=== PATIENT | female | born 1945 | race Caucasian/White ===

== ENCOUNTER 2021-12-13 10:16 | Emergency (ER) | payer MEDICARE ==
[~2021-12-13] VITALS: Ht 154.9 cm; Wt 73.3 kg
[2021-12-13] MEDS ORDERED: CONTRAST GIVEN. MC PRN (10:45)
--- NOTE | 2021-12-13 10:50 | PHYS DOC ---
Past History Additional Past Medical Histor: tunnel vision; slipped disc; Past Surgical History: Hysterectomy, Tonsillectomy, Tubal ligation Alcohol Use: Rarely General Adult EDM: Chief Complaint: ABSCESS HPI: HPI: Patient is a 76-year-old female presents with abscess near her rectum. Patient states that symptoms started a few days ago. Patient has been taking Tylenol at home which is provided some relief. Pain is worse with sitting. Patient reports that 30 years ago she had a rectal abscess that had to be surgically drained. Patient has noticed some drainage coming from the area along with tenderness. Denies fever. History of chronic back pain. Review of Systems: Review of Systems: ROS At least 10 ROS systems have been reviewed and are negative except as documented in the HPI. General: Negative except as outlined in HPI above. Skin: Negative except as outlined in HPI above. HEENT: Negative except as outlined in HPI above. Neck: Negative except as outlined in HPI above. Respiratory: Negative except as outlined in HPI above.. Cardiovascular: Negative except as outlined in HPI above. Abdomen: Negative except as outlined in HPI above. : Negative except as outlined in HPI above. Back/MSK: Negative except as outlined in HPI above. Neuro: Negative except as outlined in HPI above. Psych: Negative except as outlined in HPI above. Current Medications: Current Meds: Current Medications Medications (Trade) Dose Ordered Sig/Reanna Start Time Stop Time Status Last Admin Dose Admin Info (Do NOT chart on this entry -- for MONITORING) 1 each PRN DAILY PRN 12/13/21 10:45 12/15/21 10:44 Iohexol (Omnipaque 300 Mg/ml) 75 ml 1X ONCE 12/13/21 11:00 12/13/21 11:01 Morphine Sulfate (Morphine 4mg Syringe) 4 mg 1X ONCE 12/13/21 11:00 12/13/21 11:01 Ondansetron HCl (Zofran) 4 mg 1X ONCE 12/13/21 11:00 12/13/21 11:01 Allergies: Allergies: Allergies Coded Allergies Type Severity Reaction Last Updated Verified hydrocodone Allergy Unknown 12/13/21 Yes silver Allergy Unknown 12/13/21 Yes Physical Exam: PE: Constitutional: Well developed, well nourished, no acute distress, non-toxic appearance. [] HENT: bilateral external ears normal, oropharynx moist Eyes: PERRLA, conjunctiva normal, no discharge. [] Neck: Normal range of motion, no tenderness, supple, no stridor. Cardiovascular:Heart rate regular rhythm, no murmur Lungs & Thorax: Bilateral breath sounds clear to auscultation Abdomen: Bowel sounds normal, soft, no tenderness, no masses Skin: Abscess close to anal verge, posterior midline, superficial, tender Current Patient Data: Vital Signs: Vital Signs Date Time Temp Pulse Resp B/P (MAP) Pulse Ox O2 Delivery O2 Flow Rate FiO2 12/13/21 10:28 95.0 82 18 145/80 (101) 95 Room Air EKG: EKG: [] Radiology/Procedures: Radiology/Procedures: []CT abdomen pelvis with contrast dated 12/13/2021. COMPARISON: None. INDICATION: Abdominal pain. Possible abscess. TECHNIQUE: Contiguous axial imaging the abdomen pelvis performed after the administration of 75 cc Isovue-370. One or more of the following individualized dose reduction techniques were utilized for this examination: 1. Automated exposure control 2. Adjustment of the mA and/or kV according to patient size 3. Use of iterative reconstruction technique. FINDINGS: Limited images of lung bases are clear. Heart size is upper limits of normal. No pleural or pericardial effusion. Solid abdominal viscera not well evaluated in the absence of contrast material. Diffuse low-density liver suggesting mild fatty infiltration. No biliary ductal dilatation. Gallbladder unremarkable. Spleen is normal in size. Pancreas, adrenal glands and kidneys are unremarkable. No hydronephrosis. Unopacified GI tract normal in caliber and contour. No bowel wall thickening. The appendix is normal in caliber. There are scattered diverticula throughout the colon. No paracolonic inflammatory changes. No ascites or lymphadenopathy. Abdominal aorta normal in caliber. Images of pelvis show nondistended urinary bladder. Uterus is surgically absent. No free pelvic fluid or pelvic lymphadenopathy. There is a borderline enlarged external iliac chain lymph node on the right that measures 11 mm short axis, nonspecific. Bone window show no acute findings. There is mild multilevel lumbar spondylosis. Mild degenerative change at the bilateral hip joint. There is a distended iliopsoas bursa on the right. IMPRESSION: 1. No acute abnormality of abdomen or pelvis. Normal appendix. 2. Diverticulosis with no evidence of acute diverticulitis. 3. Mild fatty infiltration of the liver. 4. Mildly distended iliopsoas bursa on the right. Electronically signed by: Hugh Pham MD (12/13/2021 12:06 PM) [id number] Heart Score: C/O Chest Pain: No Risk Factors: Risk Factors: DM, Current or recent (<one month) smoker, HTN, HLP, family history of CAD, obesity. Risk Scores: Score 0 - 3: 2.5% MACE over next 6 weeks - Discharge Home Score 4 - 6: 20.3% MACE over next 6 weeks - Admit for Clinical Observation Score 7 - 10: 72.7% MACE over next 6 weeks - Early Invasive Strategies Course & Med Decision Making: Course & Med Decision Making Pertinent Labs and Imaging studies reviewed. (See chart for details) [] 76-year-old female presents with abscess near her rectum. Symptoms started a few days ago. Work-up in ER consisted of CBC, BMP, CT abdomen pelvis with cont rast. Patient did have a rectal abscess that had to be surgically drained in the past. Patient's pain treated in the ER. CT of abdomen pelvis does not show any signs of perianal abscess. Discussed results with patient. Perirectal abscess was drained. Patient tolerated procedure well. Moderate amount of drainage was removed. Patient given Percocet to help with discomfort while in the ER. Patient was placed on antibiotics. Discussed signs of infection to look for. Ibuprofen and Tylenol at home for pain. Follow-up with your PCP if pain does not improve. Monalisa Disclaimer: Monalisa Disclaimer: This electronic medical record was generated, in whole or in part, using a voice recognition dictation system. Incision and Drainage Indication: perianal abscess Procedure: The patient was positioned appropriately and the skin over the incision site was cleaned prior to procedure. An incision was then made over the abscess and small amount of drainage material was expressed. Tetnus up to date. The drainage cavity was then drained. Patient tolerated well. Complications: none Departure Departure: Impression: Primary Impression: Perianal abscess Disposition: 01 HOME / SELF CARE / HOMELESS Condition: STABLE Referrals: [facility]CP[facility] (PCP) Patient Instructions: Abscess, Perineal Additional Instructions: You are seen in the emergency room for abscess near your rectal area. The abscess was drained. You were given pain medication while in the ER. I am sending you home with antibiotics to prevent infection. Please watch for signs of infection such as fever, increasing pain, increase of drainage or odor. Return to the emergency room if you have worsening symptoms or concerns, otherwise follow-up with your PCP. EMERGENCY DEPARTMENT GENERAL DISCHARGE INSTRUCTIONS Thank you for coming to [facility] (ED) today and trusting us with you care. We trust that you had a positivie experience in our Emergency Department. If you wish to speak to the department management, you may call the director at [phone]. YOUR FOLLOW UP INSTRUCTIONS ARE FOLLOWS: 1. Do you have a private Doctor? If you do not have a private doctor, please ask for a resource list of physicians or clinics that may be able to assist you with follow up care. 2. The Emergency Physician has interpreted your x-rays. The X-Ray specialist will also review them. If there is a change in the findings, you will be notified in 48 hours when at all possible. 3. A lab test or culture has been done, your results will be reviewed and you will be notified if you need a change in treatment. ADDITIONAL INSTRUCTIONS AND INFORMATION: 1. Your care today has been supervised by a physician who is specially trained in emergency care. Many problems require more than one evaluation for a complete diagnosis and treatment. We recommend that you schedule your follow up appointment as recommended to ensure complete treatment of you illness or injury. If you are unable to obtain follow up care and continue to have a problem, or if your condition worsens, we recommend that you return to the ED. 2. We are not able to safely determine your condition over the phone nor are we able to give sound medical advice over the phone. For these safety reasons, if you call for medical advice we will ask you to come to the ED for further evaluation. 3. If you have any questions regarding these discharge instructions please call the ED at [phone]. SAFETY INFORMATION: In the interest of safety, wellness, and injury prevention; we encourage you to wear your sealbelt, if you smoke; quite smoking, and we encourage family to use a protective helmet for bicycling and other sporting events that present an increased risk for head injury. IF YOUR SYMPTOMS WORSEN OR NEW SYMPTOMS DEVELOP, OR YOU HAVE CONCERNS ABOUT YOUR CONDITION; OR IF YOUR CONDITION WORSENS WHILE YOU ARE WAITING FOR YOUR FOLLOW UP APPOINTMENT; EITHER CONTACT YOUR PRIMARY CARE DOCTOR, THE PHYSICIAN WHOSE NAME AND NUMBER YOU WERE GIVEN, OR RETURN TO THE ED IMMEDIATELY. Scripts KristinaKaiimadone HCl/Acetaminophen (Percocet 5-325 mg Tablet) 1 Each Tablet 1 TAB PO PRN Q8HRS PRN for PAIN MDD 2 Tablet(s) for 3 Days, #10 TAB 0 Refills Prov: YAMILE ORNELAS APRN 12/13/21 Amoxicillin/Potassium Clav (AUGMENTIN 500-125 TABLET) 1 Each Tablet 1 TAB PO BID for abscess for 7 Days, #14 TAB 0 Refills Prov: YAMILE ORNELAS APRN 12/13/21 YAMILE ORNELAS APRN Dec 13, 2021 10:50
[2021-12-13] MEDS ORDERED: MORPHINE SULFATE 4 MG/ML DISP.SYRIN. IV ONE (11:00)
[2021-12-13] MEDS ORDERED: ONDANSETRON PF 4 MG/2 ML VIAL. IVP ONE (11:00)
[2021-12-13] MEDS ORDERED: IOHEXOL 300 MG/ML 75 ML VIAL. IV ONE (11:00)
[2021-12-13 11:09] LABS: BASO # 0.1 x10^3/uL (0.0-0.2); BASO % 1 % (0-3); EOS # 0.4 x10^3/uL (0.0-0.7); EOS % 3 % (0-3); HEMATOCRIT 45.8 % (36.0-47.0); HEMOGLOBIN 14.9 g/dL (12.0-15.5); LYMPH # 3.9 x10^3/uL (1.0-4.8); LYMPH % 35 % (24-48); MEAN CORPUSCULAR HEMOGLOBIN 29 pg (25-35); MEAN CORPUSCULAR HGB CONC 32 g/dL (31-37); MEAN CORPUSCULAR VOLUME 89 fL (79-100); MONO # 0.9 x10^3/uL (0.0-1.1); MONO % 8 % (0-9); NEUT # 5.9 x10^3uL (1.8-7.7); NEUT % 53 % (31-73); PLATELET COUNT 246 x10^3/uL (140-400); RED BLOOD COUNT 5.17 x10^6/uL (3.50-5.40); RED CELL DISTRIBUTION WIDTH 14.2 % (11.5-14.5); WHITE BLOOD COUNT 11.2 x10^3/uL (4.0-11.0)
[2021-12-13 11:16] LABS: CALCIUM 9.7 mg/dL (8.5-10.1); CREATININE 0.9 mg/dL (0.6-1.0); GFR 61.2; POTASSIUM 3.7 mmol/L (3.5-5.1)
--- NOTE | 2021-12-13 12:08 | RAD ---
CT abdomen pelvis with contrast dated 12/13/2021. COMPARISON: None. INDICATION: Abdominal pain. Possible abscess. TECHNIQUE: Contiguous axial imaging the abdomen pelvis performed after the administration of 75 cc Isovue-370. One or more of the following individualized dose reduction techniques were utilized for this examinat ion: 1. Automated exposure control 2. Adjustment of the mA and/or kV according to patient size 3. Use of iterative reconstruction technique. FINDINGS: Limited images of lung bases are clear. Heart size is upper limits of normal. No pleural or pericardi al effusion. Solid abdominal viscera not well evaluated in the absence of contrast material. Diffuse low-density l iver suggesting mild fatty infiltration. No biliary ductal dilatation. Gallbladder unremarkable. Spleen is normal in size. Pancreas, adrenal glands and kidneys are unremarkable. No hydronephrosis. Unopacified GI tract normal in caliber and contour. No bowel wall thickening. The appendix is normal in caliber. There are scattered diverticula throughout the colon. No paracolonic inflammatory changes . No ascites or lymphadenopathy. Abdominal aorta normal in caliber. Images of pelvis show nondistended urinary bladder. Uterus is surgically absent. No free pelvic fluid or pelvic lymphadenopathy. There is a borderline enlarged external iliac chain lymph node on the rig ht that measures 11 mm short axis, nonspecific. Bone window show no acute findings. There is mild multilevel lumbar spondylosis. Mild degenerative ch yobani at the bilateral hip joint. There is a distended iliopsoas bursa on the right. IMPRESSION: 1. No acute abnormality of abdomen or pelvis. Normal appendix. 2. Diverticulosis with no evidence of acute diverticulitis. 3. Mild fatty infiltration of the liver. 4. Mildly distended iliopsoas bursa on the right. Electronically signed by: Hugh Pham MD (12/13/2021 12:06 PM) [id number]
[2021-12-13] MEDS ORDERED: AMOX1TAB58 PO (12:57)
[2021-12-13] MEDS ORDERED: OXYC-325 PO (12:58)
[2021-12-13] MEDS ORDERED: oxyCODONE/APAP 5/325 1 TAB TABLET PO ONE (13:45)
[2021-12-13 14:15] VITALS: BP 97/52
== END 2021-12-13 14:15 | disposition home or self-care (01) ==
LOC: ER 11:03
DX: K61.0 Anal abscess (principal); G89.29 Other chronic pain; Z90.710 Acquired absence of both cervix and uterus; Z98.51 Tubal ligation status; Z88.5 Allergy status to narcotic agent; Z88.8 Allergy status to other drugs, medicaments and biological substances
CPT/HCPCS: 36415; 46050; 74177; 80048; 85025; 96374; 96375; 99285; J2270; J2405; Q9967